=== PATIENT | female | born 1995 | race Caucasian/White ===

== ENCOUNTER 2025-04-13 13:04 | Outpatient (REF) | payer BC, SELFPAY ==
--- OUTSIDE RECORDS SUMMARY | 2025-04-13 15:59 | XMS_ITS | Clinical Summary ---
Author Organization [facility] Address [address] [place] [id number] Phone Care Team Providers Care Ophthalmic Assistant Name Role Phone Maya Henley MD Primary Care Provider [phone] Allergies No known active allergies Medications LIVIA 0.35 MG tablet Take 1 tablet by mouth once daily. 11 01/26/2019 Active Active Problems Problem Noted Date Diagnosed Date Influenza vaccine refused 08/06/2018 Immunizations Immunization Administration Dates Next Due Tdap 08/06/2018 Family History Medical History Relation Name Comments No Known Problems Brother 1 Andrew No Known Problems Brother 2 Niya No Known Problems Father Darren No Known Problems Mother Dagmar Relation Name Status Comments Brother 1 Andrew Alive Brother 2 Niya Alive Father Darren Alive Mother Dagmar Alive Social History Tobacco Use Types Packs/Day Years Used Date Smoking Tobacco: Never Smokeless Tobacco: Never Alcohol Use Standard Drinks/Week Comments Yes 0 (1 standard drink = 0.6 oz pur e alcohol) social drink Hunger/Food Answer Date Recorded In the last 12 months, did y ou or your family ever eat less than you felt you should because there wasn't enough money for food? No 08/11/2019 Stable Housing Answer Date Recorded Are you worried that in the next 2 months you may not have stable housing? No 08/11/2019 Transportation Concerns Answer Date Rec orded In the last 12 months, have you or your family ever had to go without healthcare because you didn't have a way to get there? No 08/11/2019 Hazards in Home Answer Date Recorded Think about the place you li ve. Do you have problems with any of the following? Pests (mice or roaches), mold, no/not working smoke detectors, water leaks, no window guards. No 2019 Financing Utilities Answer Date Recorde d In the last 12 months, has t he electric, gas, oil, or water company threatened to shut off your services in your home? No 08/11/2019 Safety at Home Answer Date Recorded Are you or your family worried about feeling saf e in your home? No 08/11/2019 Outside Support Answer Date Recorded Do you feel that you need mo re support from other people or programs to help you care for yourself or your family? No 08/11/2019 Understanding Health Concerns Answer Da te Recorded Do you need help understandi ng your or your child's healthcare needs (diagnosis, medications, plan, etc.)? No 08/11/2019 Financing Health Concerns Answer Date R ecorded In the last 12 months, was t here a time when your child needed to see a doctor or get medications or supplies but could not because of cost? No 08/11/2019 Missing School or Work Answer Date Alejandro rded Did you or your child miss s chool or work because of a health problem that could have been avoided? No 08/11/2019 Comments No Sex and Gender Information Value Date Recorded Sex Assigned at Not on file Legal Sex Female 8:12 AM EDT Gender Identity Not on file Sexual Orientation Not on file Last Filed Vital Signs Vital Sign Reading Time Taken Comments Blood Pressure 122/76 08/11/2019 12:37 PM EST Pulse 80 08/11/2019 12:37 PM EST Temperature 37.3 C (99.2 F) 08/11/2019 12:37 PM EST Respiratory Rate - - Oxygen Saturation - - Inhaled Oxygen Concentration - - Weight 68.9 kg (151 lb 12.8 oz) 020 12:37 PM EST Height 169.5 cm (5' 6.75 ) 08/11/2019 1 2:37 PM EST Body Mass Index 23.95 08/11/2019 12:37 PM EST Plan of Treatment Health Maintenance Due Date Last Done Comments MMR Vaccines (1 of 1 - Stand karen series) 1995 Varicella Vaccines (1 of 2 - 13+ 2-dose series) 2007 Hepatitis B Vaccines (1 of 3 - 19+ 3-dose series) 2013 HPV Vaccines (1 - 3-dose SCD M series) 2021 Influenza Vaccines (#1) 2025 COVID-19 Vaccine (1 - 2024-2 6 season) 2025 DTaP,Tdap,and Td Vaccines (2 - Td or Tdap) 08/06/2028 08/06/2018 HIB Vaccines Aged Out No longer eligi ble based on patient's age to complete this topic Hepatitis A Vaccines Aged Out No long er eligible based on patient's age to complete this topic IPV Vaccines Aged Out No longer eligi ble based on patient's age to complete this topic Men B Vaccine Aged Out No longer elig ible based on patient's age to complete this topic Meningococcal Vaccine Aged Out No shemar edward eligible based on patient's age to complete this topic Pneumococcal Vaccine Aged Out No long er eligible based on patient's age to complete this topic Procedures * Due to [facility] law, this organization might not be sharing sensitive test results. Procedure Name Priority Date/Time Associated Diagnosis Comments CHLAMYDIA AND GONORRHEA, AMPLIFIED Routine 08/11/2019 1:30 PM EST Well adult exam from Last 3 Months or Most Recently Relevant to Health Maintenance Results * Due to [place] [employer] law, this organization might not be sharing sensitive test results. * Chlamydia and Gonorrhea, Amplified (08/11/2019 1:30 PM EST) Chlamydia Trachomatis, DNA Probe NEGATIVE (NEG) [facility] Comment: No Chlamydia Trachomatis RNA detected in this patient's sample (REFERENCE RANGE/NORMAL VALUE: NOT DETECTED) Note: This test uses manganese breaker- mediated amplification method to detect rRNA from C. Trachomatis URINE GC AMP PROBE NEGATIVE (NEG) [facility] Comment: No Neisseria Gonorrhoeae RNA detected in this patient's sample (REFERENCE RANGE/NORMAL VALUE: NOT DETECTED) NOTE: This test uses manganese breaker-mediated amplification method to detect rRNA from N.Gonorrhoeae. A negative result does not preclude infection. In the case of a negative urine result, testing of an endocervical(female) or urethral (male) specimen is recommended if there is high clinical suspicion of infection. Due to very high sensitivity of Nucleic Acid Amplification Test, false positive results may occur. Therefore, specimen handling is extremely important. In patients in whom the disease is unlikely, additional sample for testing should be considered after an initial positive result. The performance characteristics of this test have not been evaluated in children. The Aptima Combo2 assay is not intended for the evaluation of suspected sexual abuse or for other medico-legal indications. The ordering provider should assess if the patient had consensual sex without risk of sexual abuse. Consult the [facility] if needed. Contact phone number . Therapeutic failure or success cannot be determined with the Aptima Combo2 assay since nucleic acid may persist following appropriate antimicrobial therapy. The Centers for Disease Control and Prevention (CDC) recommends confirmatory retesting using culture or a different nucleic acid amplification test when positive results occur, if indicated. Testing performed or reported by [facility], a Service of [facility], [address] [place] [address] Miles Sorto MD, [employer] Urine 08/11/2019 1:30 PM EST 08/11/2019 5:29 PM EST us Maya Henley MD LAB MICROBIOLOGY - GENERAL ORDER DARWIN Final Result [facility] from Last 3 Months or Most Recently Relevant to Health Maintenance [place] [address] [place] [phone] HMO Care Teams Ophthalmic Assistant Relationship Specialty Start Date End Date Maya Henley MD PCP - General Pediatrics 04/17/18
== END 2025-04-13 13:05 | disposition home or self-care (01) ==
LOC: CF 13:04
DX: Z13.89 Encounter for screening for other disorder (principal)